=== PATIENT | female | born 1995 | race Two or more races ===

== ENCOUNTER 2023-07-18 08:33 | Emergency (ER) | payer MEDICAID ==
[~2023-07-18] VITALS: Ht 157.5 cm; Wt 73.3 kg
[~2023-07-18 08:33] MED LIST: CALC500C3 PO; PREN-96 PO
[2023-07-18 09:17] LABS: Urine WBC None Seen /hpf (0 - 5)
[2023-07-18 09:32] LABS: Basophils # (auto) 0 10 ^3/uL (0-0.2); Basophils % (auto) 0.1 % (0.0-2.0); Chloride 106 mmol/L (98-107); Eosinophils # (auto) 0.1 10 ^3/uL (0-0.8); Hemoglobin 12.8 g/dL (12.2-16.2); Lymphocytes # (auto) 1.8 10 ^3/uL (0.4-5.4); Lymphocytes % (auto) 13.3 % (10.0-50.0); Mean Corpuscular Hemoglobin 28.2 pg (28.0-32.0); Mean Corpuscular Hgb Conc. 32.9 g/dL (32.0-36.0); Mean Corpuscular Volume 85.7 fL (80.0-100.0); Monocytes # (auto) 0.6 10 ^3/uL (0-1.3); Neutrophils # (auto) 11.3 10 ^3/uL (1.6-8.6); Neutrophils % (auto) 81.6 % (37.0-80.0); Potassium 3.8 mmol/L (3.5-5.1); Red Blood Cells 4.55 10^6/uL (4.0-5.20); Sodium 138 mmol/L (136-145); White Blood Cell 13.8 10^3/uL (4.4-10.8)
[2023-07-18 09:32] LABS: Urine Amorphous Crystal FEW /hpf (None Seen); Urine Bacteria NONE SEEN /hpf (None Seen); Urine Blood 2+ /uL (Negative); Urine Clarity CLOUDY (Clear); Urine Protein, UAD Negative (Negative); Urine Specific Gravity 1.017 (1.001-1.035); Urine Urobilinogen Normal (Negative)
[2023-07-18 09:33] LABS: Anion Gap 7 (5-15); Carbon Dioxide 25 mmol/L (20-30)
[2023-07-18 09:34] LABS: Calcium 9.6 mg/dL (8.5-10.1)
[2023-07-18 09:38] LABS: BUN/Creatinine Ratio 13.2 (10.0-20.0); Blood Urea Nitrogen 10 mg/dL (9-23); Glucose 104 mg/dL (74-106)
[2023-07-18 09:39] LABS: Urine Color Yellow (Yellow)
[2023-07-18] MEDS: KETOROLAC TROMETH 30 MG/ML 1ML VIAL IV ONE (11:14)
[2023-07-18] MEDS: SODIUM CHLORIDE 0.9% 1,000 ML IV ONE (11:14)
[2023-07-18] MEDS ORDERED: IBU600T PO (12:37)
[2023-07-18] MEDS ORDERED: CEPH250C PO (12:37)
[2023-07-18] MEDS: TAMSULOSIN HYDROCHLORIDE 0.4 MG CAP PO ONE (12:55)
[2023-07-18] MEDS: cefTRIAXone 1GM/50ML D5W 50 ML IV ONE (12:55)
[2023-07-18 12:58] VITALS: BP 121/65; PULSE 98; RESP 16; TEMP 97.9; O2SAT 99
== END 2023-07-18 13:15 | disposition home or self-care (01) ==
LOC: ER 08:33
DX: N20.0 Calculus of kidney (principal); N39.0 Urinary tract infection, site not specified; Z79.1 Long term (current) use of non-steroidal anti-inflammatories (NSAID); Z79.899 Other long term (current) drug therapy
CPT/HCPCS: 36415; 74176; 80048; 81001; 81025; 85025; 96361; 96365; 96375; 99285; J0696; J1885; J7030